=== PATIENT | female | born 1995 | race Caucasian/White ===

== ENCOUNTER 2017-08-23 15:52 | Emergency (ER) | payer OTHER ==
[~2017-08-23] VITALS: Ht 175.3 cm; Wt 86.2 kg
[2017-08-23 16:31] VITALS: BP 123/74
--- NOTE | 2017-08-23 18:47 | ED.ADGEN ---
Past History Past Medical History: No Pertinent History Past Surgical History: Cholecystectomy, Other Alcohol Use: None Drug Use: None Adult General Chief Complaint Chief Complaint " I was lifting weights.. and felt a pop and tear in my Rt forearm..." [facility] HPI Patient is a 22 year old female who presents with pain in mid Rt. forearm. Pt. was doing wrist curls with bar rebolledo at time of injury to Rt forearm Pain appears to localized to area of brachial radialis. There is swelling and edema and pain with palpation of this area. Distal neurovascular intact. Patient is right-hand dominant. Patient follows at [facility]. Patient is normally healthy. No other injuries reported. Capillary refill less than 2 seconds and fingertips. Range of motion intact in fingers. Ulnar median and radial nerves appear to be intact distally. Pain can be exacerbated by dorsiflexion and flexion at elbow. Review of Systems Review of Systems Constitutional: Denies fever or chills [] Eyes: Denies change in visual acuity, redness, or eye pain [] HENT: Denies nasal congestion or sore throat [] Respiratory: Denies cough or shortness of breath [] Cardiovascular: No additional information not addressed in HPI [] GI: Denies abdominal pain, nausea, vomiting, bloody stools or diarrhea [] : Denies dysuria or hematuria [] Musculoskeletal: Denies back pain or joint pain []complaints of right forearm pain Integument: Denies rash or skin lesions [] Neurologic: Denies headache, focal weakness or sensory changes [] Endocrine: Denies polyuria or polydipsia [] All other systems were reviewed and found to be within normal limits, except as documented in this note. Family History Family History Noncontributory Current Medications Current Medications See nursing for home meds Allergies Allergies Allergies Coded Allergies Type Severity Reaction Last Updated Verified No Known Drug Allergies 08/23/17 No Physical Exam Physical Exam Constitutional: Well developed, well nourished, no acute distress, non-toxic appearance. [] HENT: Normocephalic, atraumatic, bilateral external ears normal, oropharynx moist, no oral exudates, nose normal. [] Eyes: PERRLA, EOMI, conjunctiva normal, no discharge. [] Neck: Normal range of motion, no tenderness, supple, no stridor. [] Cardiovascular:Heart rate regular rhythm, no murmur [] Lungs & Thorax: Bilateral breath sounds clear to auscultation [] Abdomen: Bowel sounds normal, soft, no tenderness, no masses, no pulsatile masses. [] Old surgery scar Skin: Warm, dry, no erythema, no rash. [] Tattoos Back: No tenderness, no CVA tenderness. [] Extremities: No tenderness, no cyanosis, no clubbing, ROM intact, no edema. [] Except findings and right forearm as per history of present illness Neurologic: Alert and oriented X 3, normal motor function, normal sensory function, no focal deficits noted. [] Psychologic: Affect normal, judgement normal, mood normal. [] Current Patient Data Vital Signs Vital Signs Date Time Temp Pulse Resp B/P (MAP) Pulse Ox O2 Delivery O2 Flow Rate FiO2 08/23/17 16:31 98.4 80 16 99 Room Air EKG EKG [] Radiology/Procedures Radiology/Procedures I interpretation right forearm shows no obvious displaced fracture. There is some findings of mild edema[] Course & Med Decision Making Course & Med Decision Making Pertinent Labs and Imaging studies reviewed. (See chart for details) Rest, elevation, Rao wrap, and take ibuprofen for pain. Follow-up primary care. Return if any concerns. [] Final Impression Final Impression 1. Muscle tear- Rt forearm Brachial Radialis Problems: Dragon Disclaimer Dragon Disclaimer This electronic medical record was generated, in whole or in part, using a voice recognition dictation system. NINO WAGNER MD Aug 23, 2017 18:47
[2017-08-23] MEDS ORDERED: IBUP400T18 PO (18:55)
--- NOTE | 2017-08-24 08:01 | RAD ---
Right forearm, 2 views, 08/23/2017: History: Pain, lifting injury No fracture is identified. IMPRESSION: No bony abnormality is detected
== END 2017-08-23 19:08 | disposition home or self-care (01) ==
LOC: ER 15:52
DX: S56.811A Strain of other muscles, fascia and tendons at forearm level, right arm, initial encounter (principal); X58.XXXA Exposure to other specified factors, initial encounter; Y93.89 Activity, other specified; Y99.8 Other external cause status; Y92.89 Other specified places as the place of occurrence of the external cause
CPT/HCPCS: 73090; 99284

== ENCOUNTER 2017-11-05 12:41 | Emergency (ER) | payer OTHER ==
[~2017-11-05] VITALS: Ht 175.3 cm; Wt 91.5 kg
[~2017-11-05 12:41] MED LIST: IBUP400T18 PO
--- NOTE | 2017-11-05 14:38 | RAD ---
Left lower extremity venous ultrasound, 11/05/2017 : History: Left calf pain Duplex evaluation including grayscale, color flow and spectral Doppler analysis was performed. The femoral and popliteal veins show no filling defects to suggest DVT. The visualized calf veins are unremarkable. IMPRESSION: There is no sonographic evidence of deep vein thrombosis in the left lower extremity
--- NOTE | 2017-11-05 15:02 | PHYS DOC ---
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 Patient complaining of episodes of electrical shock feeling for the last 1 month and called her primary care physician today but they recommended she is coming to ER for obtaining the ultrasound of late for DVT. Patient denies focal neuro deficit, fever and chills , history of DVT and shortness of breath. Review of Systems Review of Systems Constitutional: Denies fever or chills [] Eyes: Denies change in visual acuity, redness, or eye pain [] HENT: Denies nasal congestion or sore throat [] Respiratory: Denies cough or shortness of breath [] Cardiovascular: No additional information not addressed in HPI [] GI: Denies abdominal pain, nausea, vomiting, bloody stools or diarrhea [] : Denies dysuria or hematuria [] Musculoskeletal: Denies back pain or joint pain [] Integument: Denies rash or skin lesions [] Neurologic: Denies headache, focal weakness or sensory changes [] Endocrine: Denies polyuria or polydipsia [] All other systems were reviewed and found to be within normal limits, except as documented in this note. Allergies Allergies Allergies Coded Allergies Type Severity Reaction Last Updated Verified No Known Drug Allergies 08/23/17 No Physical Exam Physical Exam Constitutional: Well developed, well nourished, no acute distress, non-toxic appearance. [] HENT: Normocephalic, atraumatic Eyes: PERRLA, EOMI, conjunctiva normal, no discharge. [] Neck: Normal range of motion, no tenderness, supple, no stridor. [] Cardiovascular:Heart rate regular rhythm, no murmur [] Lungs & Thorax: Bilateral breath sounds clear to auscultation [] Skin: Warm, dry, no erythema, no rash. [] Back: No tenderness, no CVA tenderness. [] Extremities: No tenderness, no cyanosis, no clubbing, ROM intact, no edema left lower extremity without deformity, clean scar of posterior surgical wound in left leg. [] Neurologic: Alert and oriented X 3, normal motor function, normal sensory function, no focal deficits noted. [] Psychologic: Affect normal, judgement normal, mood normal. [] EKG EKG [] Radiology/Procedures Radiology/Procedures [] [address] [address] IMAGING REPORT Signed PATIENT: MATHIEU SMILEY ACCOUNT: [id number] : 1995 LOCATION: ER AGE: 22 SEX: F EXAM STATUS: REG ER ORD. PHYSICIAN: INOCENCIA ALEXIS MD REASON: left leg pain for 1 month after surgery 6 months ago PROCEDURE: VENOUS LOWER EXTREMITY LEFT Left lower extremity venous ultrasound, 11/05/2017 : History: Left calf pain Duplex evaluation including grayscale, color flow and spectral Doppler analysis was performed. The femoral and popliteal veins show no filling defects to suggest DVT. The visualized calf veins are unremarkable. IMPRESSION: There is no sonographic evidence of deep vein thrombosis in the left lower extremity DICTATED AND SIGNED BY: KIZZY MURCIA MD DATE: 11/05/17 1435 CC: INOCENCIA ALEXIS MD; NON,STAFF ~ Course & Med Decision Making Course & Med Decision Making Pertinent Imaging studies reviewed. (See chart for details) Evaluation of patient in ER showed 22-year-old female patient seen by her primary care physician because of chronic left leg pain and electrical shocklike feeling since her surgery in April 2017. Patient had unremarkable physical exam and ultrasound of left lower extremity and instructed to follow- up with her primary care physician for chronic problem. She did not want to have pain medication in ER or for home. Dragon Disclaimer Dragon Disclaimer This electronic medical record was generated, in whole or in part, using a voice recognition dictation system. Departure Departure: Impression: Primary Impression: Chronic pain of left lower extremity Disposition: HOME, SELF-CARE (At 1459) Condition: STABLE Referrals: NON,STAFF (PCP) Patient Instructions: Chronic Pain Additional Instructions: Follow-up with your primary care physician in 3-5 days Return to ER if not getting better INOCENCIA ALEXIS MD Nov 05, 2017 15:02
[2017-11-05 15:25] VITALS: BP 112/69
== END 2017-11-05 15:25 | disposition home or self-care (01) ==
LOC: ER 12:41
DX: G89.29 Other chronic pain (principal); M79.605 Pain in left leg
CPT/HCPCS: 93971; 99284-25

== ENCOUNTER 2017-12-25 23:25 | Emergency (ER) | payer OTHER ==
[~2017-12-25] VITALS: Ht 175.3 cm; Wt 83.0 kg
--- NOTE | 2017-12-25 23:28 | ED.ADGEN ---
Past History Past Medical History: No Pertinent History Past Surgical History: Other Alcohol Use: None Drug Use: None Adult General Chief Complaint Chief Complaint ".. I ve got a sore throat..."..".. I ve been sick since last sat.. ".. I went to [place].. and they did a strept. and flu... and they were negative... ".." I am so hoarse.. ".. 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 Patient has been taking antihistamines and been following up with [place] [facility]. No recent travel. No specific ill contacts other than child has also had an upper respiratory infection. No overseas travel. Up-to-date with vaccinations. Previous flu and strep tests were reportedly negative. Review of Systems Review of Systems Constitutional: Subjective history of fever Eyes: Denies change in visual acuity, redness, or eye pain [] HENT: History of rhinorrhea and nasal congestion and sore throat [] Respiratory: Denies cough or shortness of breath [] Cardiovascular: No additional information not addressed in HPI [] GI: Denies abdominal pain, nausea, vomiting, bloody stools or diarrhea [] : Denies dysuria or hematuria [] Musculoskeletal: Denies back pain or joint pain [] Integument: Denies rash or skin lesions [] Neurologic: Denies headache, focal weakness or sensory changes [] Endocrine: Denies polyuria or polydipsia [] All other systems were reviewed and found to be within normal limits, except as documented in this note. Family History Family History Noncontributory Current Medications Current Medications Current Medications Medications (Trade) Dose Ordered Sig/Alison Start Time Stop Time Status Last Admin Dose Admin Prednisone (Prednisone) 60 mg 1X ONCE 12/26/17 01:00 12/26/17 01:01 DC 12/26/17 01:18 60 MG Tramadol HCl (Starter Pack - Ultram) 1 startpack 1X ONCE 12/26/17 01:00 12/26/17 01:01 DC 12/26/17 01:00 1 STARTPACK Allergies Allergies Allergies Coded Allergies Type Severity Reaction Last Updated Verified No Known Drug Allergies 11/05/17 No Physical Exam Physical Exam Constitutional: Well developed, well nourished, moderately acute distress, non- toxic appearance. [] HENT: Normocephalic, atraumatic, bilateral external ears normal, oropharynx moist, checked pharynx, no oral exudates, nose swollen turbinates and rhinorrhea. Eyes: PERRLA, EOMI, conjunctiva injected, no discharge. [] Neck: Normal range of motion, no tenderness, supple, no stridor. [] No adenopathy. Cardiovascular:Heart rate regular rhythm, no murmur [] Lungs & Thorax: Bilateral breath sounds equal few scattered wheezes auscultation [] Abdomen: Bowel sounds normal, soft, no tenderness, no masses, no pulsatile masses. [] Skin: Warm, dry, no erythema, no rash. [] Back: No tenderness, no CVA tenderness. [] Extremities: No tenderness, no cyanosis, no clubbing, ROM intact, no edema. [] Neurologic: Alert and oriented X 3, normal motor function, normal sensory function, no focal deficits noted. [] Psychologic: Affect anxious, judgement normal, mood normal. [] Current Patient Data Vital Signs Vital Signs Date Time Temp Pulse Resp B/P (MAP) Pulse Ox O2 Delivery O2 Flow Rate FiO2 12/26/17 01:00 22 100 Room Air 12/25/17 23:25 97.9 84 EKG EKG [] Radiology/Procedures Radiology/Procedures [] Course & Med Decision Making Course & Med Decision Making Pertinent Labs and Imaging studies reviewed. (See chart for details). Gargle with Listerine 4 times a day. And as needed. Take Tylenol and ibuprofen for discomfort. For marked discomfort may take Vicoprofen up 4 times a day. Take Benadryl 50 mg up to 4 times a day. Follow-up primary care. Take prednisone 50 mg daily for 5 days. Push fruit juices. Return if any concerns. [] Final Impression Final Impression 1. Pharyngitis[] 2. Viral Syndrome Dragon Disclaimer Dragon Disclaimer This electronic medical record was generated, in whole or in part, using a voice recognition dictation system. NINO WAGNER MD December 25, 2017 23:28
[2017-12-26] MEDS ORDERED: START PACK - traMADol 1 STARTPACK TABLET PO ONE (01:00)
[2017-12-26] MEDS ORDERED: predniSONE 20 MG TABLET PO ONE (01:00)
[2017-12-26] MEDS ORDERED: DIPH50CA PO (01:07)
[2017-12-26] MEDS ORDERED: HYDR-79 PO (01:07)
[2017-12-26] MEDS ORDERED: PRED50TA PO (01:13)
[2017-12-26 01:25] VITALS: BP 133/52
== END 2017-12-26 01:25 | disposition home or self-care (01) ==
LOC: ER 23:25
DX: B34.9 Viral infection, unspecified (principal)
CPT/HCPCS: 87070; 87880; 99283; J7512

== ENCOUNTER 2018-04-04 11:40 | Emergency (ER) | payer OTHER ==
[~2018-04-04] VITALS: Ht 177.8 cm; Wt 90.7 kg
[2018-04-04 11:40] VITALS: BP 124/78
[~2018-04-04 11:40] MED LIST changes: +DIPH50CA PO; +HYDR-79 PO; +PRED50TA PO
--- NOTE | 2018-04-04 12:20 | PHYS DOC ---
Past History Past Medical History: No Pertinent History Past Surgical History: Other Alcohol Use: None Drug Use: None Adult General Chief Complaint Chief Complaint: EYE PROBLEMS HPI HPI 22-year-old female presents with loss of her protective contact lens after laser eye surgery. The patient believes that there is still a contact lens in her eye, but she is unable to find it. [place] She was not provided any kind of emergency phone number. [place] told [place] the emergency room could help her, so she came here. Patient is very concerned as she was told it was critical that she keep these protective contacts in place after her surgery. She has no other complaints. Review of Systems Review of Systems Constitutional: Denies fever or chills [] Eyes: Right eye irritation[] HENT: Denies nasal congestion or sore throat [] Respiratory: Denies cough or shortness of breath [] Cardiovascular: No additional information not addressed in HPI [] GI: Denies abdominal pain, nausea, vomiting, bloody stools or diarrhea [] : Denies dysuria or hematuria [] Musculoskeletal: Denies back pain or joint pain [] Integument: Denies rash or skin lesions [] Neurologic: Denies headache, focal weakness or sensory changes [] Endocrine: Denies polyuria or polydipsia [] All other systems were reviewed and found to be within normal limits, except as documented in this note. Allergies Allergies Allergies Coded Allergies Type Severity Reaction Last Updated Verified No Known Drug Allergies 11/05/17 No Physical Exam Physical Exam Constitutional: Well developed, well nourished, no acute distress, non-toxic appearance. [] HENT: Normocephalic, atraumatic, bilateral external ears normal, oropharynx moist, no oral exudates, nose normal. [] Eyes: PERRLA, EOMI, conjunctiva normal, no discharge. Contacts back in place. [ ] Neck: Normal range of motion, no tenderness, supple, no stridor. [] Cardiovascular:Heart rate regular rhythm, no murmur [] Lungs & Thorax: Bilateral breath sounds clear to auscultation [] Abdomen: Bowel sounds normal, soft, no tenderness, no masses, no pulsatile masses. [] Skin: Warm, dry, no erythema, no rash. [] Back: No tenderness, no CVA tenderness. [] Extremities: No tenderness, no cyanosis, no clubbing, ROM intact, no edema. [] Neurologic: Alert and oriented X 3, normal motor function, normal sensory function, no focal deficits noted. [] Psychologic: Affect normal, judgement normal, mood normal. [] EKG EKG [] Radiology/Procedures Radiology/Procedures [] Course & Med Decision Making Course & Med Decision Making Pertinent Labs and Imaging studies reviewed. (See chart for details) The nurse was able to locate the patient's contact as he has experience with contacts and this kind of surgery. He was able to remove it with sterile forceps. The patient was able then replace a new contact. Afterward she had complete relief of her discomfort. She was greatly relieved that were able to assist her. She has no further complaints. She is stable for discharge at this time. [] Dragon Disclaimer Dragon Disclaimer This electronic medical record was generated, in whole or in part, using a voice recognition dictation system. Departure Departure: Referrals: CARMEN MCDANIEL PA-C (PCP) ALYSA REILLY DO Apr 04, 2018 12:20
== END 2018-04-04 12:27 | disposition home or self-care (01) ==
LOC: ER 11:40
DX: T15.91XA Foreign body on external eye, part unspecified, right eye, initial encounter (principal); X58.XXXA Exposure to other specified factors, initial encounter; Y93.89 Activity, other specified; Y92.89 Other specified places as the place of occurrence of the external cause; Y99.8 Other external cause status
CPT/HCPCS: 99281; 99284

== ENCOUNTER 2018-08-16 05:05 | Emergency (ER) | payer OTHER ==
[~2018-08-16] VITALS: Ht 177.8 cm; Wt 99.8 kg
[~2018-08-16 05:05] MED LIST changes: +HYDR-1179 PO; -HYDR-79 PO
[2018-08-16] MEDS ORDERED: ONDANSETRON PF 4 MG/2 ML VIAL. ONE (05:27)
[2018-08-16] MEDS ORDERED: ONDANSETRON PF 4 MG/2 ML VIAL. IV ONE (05:45)
[2018-08-16] MEDS ORDERED: IV NORMAL SALINE 1,000ML 1,000 ML IV ONE (05:45)
[2018-08-16 06:01] LABS: BASO % 0 % (0-3); EOS # 0.3 x10^3/uL (0.0-0.7); EOS % 2 % (0-3); HEMATOCRIT 47.6 % (36.0-47.0); HEMOGLOBIN 16.1 g/dL (12.0-15.5); LYMPH # 0.5 x10^3/uL (1.0-4.8); LYMPH % 3 % (24-48); MEAN CORPUSCULAR HEMOGLOBIN 28 pg (25-35); MEAN CORPUSCULAR HGB CONC 34 g/dL (31-37); MEAN CORPUSCULAR VOLUME 83 fL (79-100); MONO # 0.6 x10^3/uL (0.0-1.1); MONO % 5 % (0-9); NEUT # 12.1 x10^3uL (1.8-7.7); NEUT % 90 % (31-73); PLATELET COUNT 221 x10^3/uL (140-400); RED BLOOD COUNT 5.74 x10^6/uL (3.50-5.40); RED CELL DISTRIBUTION WIDTH 13.1 % (11.5-14.5); WHITE BLOOD COUNT 13.4 x10^3/uL (4.0-11.0)
[2018-08-16 06:03] LABS: BILIRUBIN,URINE NEG (NEG); CLARITY,URINE HAZY; COLOR,URINE YELLOW; GLUCOSE,URINE NEG (NEG); UROBILINOGEN,URINE 0.2 mg/dL (0.2 mg/dL)
[2018-08-16 06:04] LABS: BACTERIA,URINE 0 /HPF (0-FEW); NITRITE,URINE NEG (NEG); SQUAMOUS EPITHELIAL CELL,UR FEW /LPF
[2018-08-16 06:14] LABS: ALBUMIN 4.1 g/dL (3.4-5.0); ALBUMIN/GLOBULIN RATIO 1.1 (1.0-1.7); CREATININE 0.9 mg/dL (0.6-1.0); POTASSIUM 4.2 mmol/L (3.5-5.1); TOTAL BILIRUBIN 0.7 mg/dL (0.2-1.0); TOTAL PROTEIN 7.8 g/dL (6.4-8.2)
[2018-08-16] MEDS ORDERED: ONDA4TAB7 PO (06:16)
--- NOTE | 2018-08-16 06:20 | PHYS DOC ---
Adult General Chief Complaint Chief Complaint vomiting HPI HPI vomiting and diarrhea since 1 am . no abd pain, no fever, no chills, Review of Systems Review of Systems Constitutional: Denies fever or chills [] Eyes: Denies change in visual acuity, redness, or eye pain [] HENT: Denies nasal congestion or sore throat [] Respiratory: Denies cough or shortness of breath [] Cardiovascular: No additional information not addressed in HPI [] : Denies dysuria or hematuria [] Musculoskeletal: Denies back pain or joint pain [] Integument: Denies rash or skin lesions [] Neurologic: Denies headache, focal weakness or sensory changes [] Endocrine: Denies polyuria or polydipsia [] All other systems were reviewed and found to be within normal limits, except as documented in this note. Current Medications Current Medications Current Medications Medications (Trade) Dose Ordered Sig/Alison Start Time Stop Time Status Last Admin Dose Admin Ondansetron HCl (Zofran) 4 mg 1X ONCE 08/16/18 05:45 08/16/18 05:51 DC 08/16/18 05:43 4 MG Sodium Chloride 1,000 ml @ 1,000 mls/hr 1X ONCE 08/16/18 05:45 08/16/18 06:44 08/16/18 05:43 1,000 MLS/HR Allergies Allergies Allergies Coded Allergies Type Severity Reaction Last Updated Verified No Known Drug Allergies 11/05/17 No Physical Exam Physical Exam Constitutional: Well developed, well nourished, no acute distress, non-toxic appearance. [] HENT: Normocephalic, atraumatic, bilateral external ears normal, oropharynx moist, no oral exudates, nose normal. [] Eyes: PERRLA, EOMI, conjunctiva normal, no discharge. [] Neck: Normal range of motion, no tenderness, supple, no stridor. [] Cardiovascular:Heart rate regular rhythm, no murmur [] Lungs & Thorax: Bilateral breath sounds clear to auscultation [] Abdomen: Bowel sounds normal, soft, no tenderness, no masses, no pulsatile masses. [] Skin: Warm, dry, no erythema, no rash. [] Back: No tenderness, no CVA tenderness. [] Extremities: No tenderness, no cyanosis, no clubbing, ROM intact, no edema. [] Neurologic: Alert and oriented X 3, normal motor function, normal sensory function, no focal deficits noted. [] Psychologic: Affect normal, judgement normal, mood normal. [] Current Patient Data Vital Signs Vital Signs Date Time Temp Pulse Resp B/P (MAP) Pulse Ox O2 Delivery O2 Flow Rate FiO2 08/16/18 05:05 98.1 92 98 Room Air Lab Results Laboratory Tests Test 08/16/18 05:10 08/16/18 05:29 08/16/18 05:35 Urine Collection Type Unknown Urine Color Yellow Urine Clarity Hazy Urine pH 6.5 Urine Specific [place] 1.015 Urine Protein Neg (NEG-TRACE) Urine Glucose (UA) Neg mg/dL (NEG) Urine Ketones (Stick) Neg mg/dL (NEG) Urine Blood Large (NEG) Urine Nitrite Neg (NEG) Urine Bilirubin Neg (NEG) Urine Urobilinogen Dipstick 0.2 mg/dL (0.2 mg/dL) Urine Leukocyte Esterase Trace (NEG) Urine RBC 11-20 /HPF (0-2) Urine WBC 1-4 /HPF (0-4) Urine Squamous Epithelial Cells Few /LPF Urine Bacteria 0 /HPF (0-FEW) POC Urine HCG, Qualitative hcg negative (Negative) White Blood Count 13.4 x10^3/uL (4.0-11.0) H Red Blood Count 5.74 x10^6/uL (3.50-5.40) H Hemoglobin 16.1 g/dL (12.0-15.5) H Hematocrit 47.6 % (36.0-47.0) H Mean Corpuscular Volume 83 fL (79-100) Mean Corpuscular Hemoglobin 28 pg (25-35) Mean Corpuscular Hemoglobin Concent 34 g/dL (31-37) Red Cell Distribution Width 13.1 % (11.5-14.5) Platelet Count 221 x10^3/uL (140-400) Neutrophils (%) (Auto) 90 % (31-73) H Lymphocytes (%) (Auto) 3 % (24-48) L Monocytes (%) (Auto) 5 % (0-9) Eosinophils (%) (Auto) 2 % (0-3) Basophils (%) (Auto) 0 % (0-3) Neutrophils # (Auto) 12.1 x10^3uL (1.8-7.7) H Lymphocytes # (Auto) 0.5 x10^3/uL (1.0-4.8) L Monocytes # (Auto) 0.6 x10^3/uL (0.0-1.1) Eosinophils # (Auto) 0.3 x10^3/uL (0.0-0.7) Basophils # (Auto) 0.0 x10^3/uL (0.0-0.2) EKG EKG [] Radiology/Procedures Radiology/Procedures [] Course & Med Decision Making Course & Med Decision Making Pertinent Labs and Imaging studies reviewed. (See chart for details) [] Final Impression Final Impression [] Problems: (1) Gastroenteritis Dragon Disclaimer Dragon Disclaimer This electronic medical record was generated, in whole or in part, using a voice recognition dictation system. ESTHELA CURIEL MD Aug 16, 2018 06:20
[2018-08-16 06:30] VITALS: BP 116/78
== END 2018-08-16 06:34 | disposition home or self-care (01) ==
LOC: ER 05:05
DX: K52.9 Noninfective gastroenteritis and colitis, unspecified (principal)
CPT/HCPCS: 36415; 80053; 81001; 81025; 85025; 87086; 96361; 96374; 99283; J2405; J7030

== ENCOUNTER 2019-02-02 20:09 | Emergency (ER) | payer OTHER ==
[~2019-02-02] VITALS: Ht 177.8 cm; Wt 102.5 kg
[~2019-02-02 20:09] MED LIST changes: +ONDA4TAB7 PO
[2019-02-02 20:15] VITALS: BP 95/65
--- NOTE | 2019-02-02 21:32 | PHYS DOC ---
Past History Past Medical History: No Pertinent History Past Surgical History: Other (Lipoma removed from left calf) Alcohol Use: Occasionally Drug Use: None Adult General Chief Complaint Chief Complaint: LOWER EXT PAIN HPI HPI Patient is a 23-year-old female presented to the left ankle pain. The pain started acutely today after the end of her workout she lost stability of her ankle and was unable to bear weight for a few minutes. After a few minutes she was able to bear weight but pain remained. She describes it as a sharp pain in her left medial high ankle and radiates out slightly during the acute event. Over the past few months she has noticed that she is having this left ankle pain it is continuous but worsens with activity. She describes it as an intense throb during workouts, but is just a tight feeling the rest of the day but is a sharp shooting pain when she has impact. She has tried rest and ibuprofen bur reports increased tenderness. 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 Denies . Review of Systems Review of Systems Constitutional: Denies fever or chills Eyes: Denies redness or eye pain HENT: Denies nasal congestion or sore throat Respiratory: Denies cough or shortness of breath Cardiovascular: Denies chest pain or palpitations GI: Denies abdominal pain, nausea, or vomiting. Reports some diarrhea. : Denies dysuria or hematuria Musculoskeletal: Denies back pain or joint pain Integument: Denies rash or skin lesions Neurologic: Denies headache, focal weakness or sensory changes Complete systems were reviewed and found to be within normal limits, except as documented in this note. Family History Family History Mother has thyroid issues and father has hypertension Current Medications Current Medications Ibuprofen when necessary Allergies Allergies Allergies Coded Allergies Type Severity Reaction Last Updated Verified No Known Drug Allergies 11/05/17 No Physical Exam Physical Exam Constitutional: Well developed, well nourished, no acute distress, non-toxic ap pearance HENT: Normocephalic, atraumatic, oropharynx moist Eyes: Conjunctiva normal, no discharge Neck: Normal range of motion, no tenderness, supple Cardiovascular: Heart rate normal, regular rhythm Lungs & Thorax: Bilateral breath sounds clear to auscultation, no wheezing Abdomen: Soft, no tenderness Skin: Warm, dry, no erythema, no rash Extremities: Left lower extremity has tenderness to palpation on anterior nair and medial high ankle. ankle ROM intact. No erythema, edema. Negative anterior drawer. Positive squeeze test. Neurologic: Alert and oriented X 3, normal motor function, normal sensory function, no focal deficits noted Psychologic: Affect normal, judgement normal, mood normal Current Patient Data Vital Signs Vital Signs Date Time Temp Pulse Resp B/P (MAP) Pulse Ox O2 Delivery O2 Flow Rate FiO2 02/02/19 20:15 97.6 87 16 96 Room Air EKG EKG [] Radiology/Procedures Radiology/Procedures PROCEDURE: TIBIA FIBULA LEFT Left tibia-fibula AP lateral x-rays 2 views HISTORY: Pain lateral mid calf. FINDINGS: No fracture or dislocation. No lytic or sclerotic bone lesion. The soft tissues are unremarkable. IMPRESSION: Normal exam. Electronically signed by: Kemal Gross MD (02/02/2019 9:56 PM) [facility] DICTATED AND SIGNED BY: KEMAL GROSS MD DATE: 02/02/192155 Course & Med Decision Making Course & Med Decision Making Ms. Patel is a 23 year old female who presents with acute on chronic ankle pain. On physical exam she had intact range of motion sensation and pulses in left lower extremity. Left ankle X-ray was obtained and showed no fracture. Ankle wrapped with alem bandage and placed in air splint and she was given crutches. RICE educated. No weightbearing for one week on left lower extremity. Encouraged RICE. Patient stable for discharge with outpatient follow-up with PCP/Orthopedics. Orthopedic referral providd. Discussed findings and plan with patient and family, who acknowledge understanding and agreement. [] Dragon Disclaimer Dragon Disclaimer This electronic medical record was generated, in whole or in part, using a voice recognition dictation system. Splinting Splinting : Location: Left ankle Pre-Made Type: aircast (ankle air splint) Pre-Proc Neuro Vasc Exam: normal Post-Proc Neuro Vasc Exam: normal, unchanged from pre-exam Departure Departure: Impression: Primary Impression: High ankle sprain of left lower extremity Disposition: 01 HOME, SELF-CARE Condition: STABLE Referrals: CARMEN MCDANIEL PA-C (PCP) KALEE BLUM MD Patient Instructions: Ankle Sprain, [id number], Crutch Use, [id number], RICE - Routine Care for Injuries, [id number] Additional Instructions: Use over the counter Tylenol and Ibuprofen for pain. Problem Qualifiers Primary Impression: High ankle sprain of left lower extremity Encounter type: initial encounter Qualified Codes: S93.432A - Sprain of tibiofibular ligament of left ankle, initial encounter KIZZY JACOBSON DO Feb 02, 2019 21:32
--- NOTE | 2019-02-02 21:59 | RAD ---
Left tibia-fibula AP lateral x-rays 2 views HISTORY: Pain lateral mid calf. FINDINGS: No fracture or dislocation. No lytic or sclerotic bone lesion. The soft tissues are unremarkable. IMPRESSION: Normal exam. Electronically signed by: Austen Gross MD (02/02/2019 9:56 PM) [facility]
== END 2019-02-02 22:15 | disposition home or self-care (01) ==
LOC: ER 20:09
DX: S93.432A Sprain of tibiofibular ligament of left ankle, initial encounter (principal); X50.9XXA Other and unspecified overexertion or strenuous movements or postures, initial encounter; Y93.89 Activity, other specified; Y92.89 Other specified places as the place of occurrence of the external cause; Y99.8 Other external cause status
CPT/HCPCS: 73590; 99284